=== PATIENT | female | born 1975 | race Caucasian/White ===

== ENCOUNTER 2018-03-26 05:48 | Day surgery (SDC) | payer MEDICAID ==
[2018-03-26] MEDS ORDERED: Albuterol-Ipratrop 3 mg / 0.5 (3 ml) UD INH STA (07:43)
[2018-03-26] MEDS ORDERED: Midazolam 2 MG/2 ML VIAL ONE (09:40)
[2018-03-26] MEDS ORDERED: Propofol 10 mg/ml Inj (20 ML) ONE (09:40)
[2018-03-26] MEDS ORDERED: HYDROmorphone 0.5 mg/0.5 ml ISec ONE (10:32)
[2018-03-26] MEDS ORDERED: HYDROmorphone 0.5 mg/0.5 ml ISec IVP PRN (10:56)
[2018-03-26] MEDS ORDERED: Lactated Ringer's 1,000 ML IV SCH (11:00)
[2018-03-26 11:43] VITALS: O2SAT 96
[2018-03-26 13:53] VITALS: BP 116/71; PULSE 84; RESP 20; TEMP 97.7
--- NOTE | 2018-03-26 19:16 | PCM.SURG1 ---
Surgeon's Initial Post Op Note - Surgeon's Notes Surgeon: dr rosario Line Maintenance Technician: none Type of Anesthesia: General LMA Anesthesia Administered By: dr lee Pre-Operative Diagnosis: 43 yr with irrgular bleeding /endometrial plyp Operative Findings: seee the op reort Post-Operative Diagnosis: same Operation Performed: myasure/d&c, hysterscopy Specimen/Specimens Removed: ecc. emc. polyp Estimated Blood Loss: EBL {In ML}: 20 Blood Products Given: N/A Drains Used: No Drains Post-Op Condition: Good Date of Surgery/Procedure: 03/26/18 Time of Surgery/Procedure: 11:00
--- NOTE | 2018-03-27 06:30 | OP ---
PROCEDURE DATE: 03/26/2018 PREOPERATIVE DIAGNOSIS: A 43-year-old 0, para 0 with irregular bleeding and endometrial polyp. POSTOPERATIVE DIAGNOSIS: A 43-year-old 0, para 0 with irregular bleeding and endometrial polyp. SURGEON: Camden Napoles MD ANESTHESIA: General anesthesia. ANESTHESIOLOGIST: Dr. Ferreira. COMPLICATIONS: None. DEFICIT: 200 mL. ESTIMATED BLOOD LOSS: 20 mL. PROCEDURE PERFORMED: MyoSure, dilatation and curettage, hysteroscopy. DESCRIPTION OF PROCEDURE: After informed consent was obtained, the patient was brought to the operating room, placed on the table where general anesthesia was given. Once the anesthesia was found to be adequate, the patient was prepped and draped in the normal sterile fashion. Examination under anesthesia revealed the uterus to be 8-week size. No pelvic or adnexal masses. Anterior lip of the cervix was grasped with a tenaculum, gentle dilatation of the cervix was done. After hysteroscope was introduced, found to be a polyp to be 4 cm on the posterior wall of the uterus. Pictures were taken and the decision was made to use the MyoSure. MyoSure was then introduced and the polyp was removed. was performed. There was no polyp. After that, sharp curettage of anterior wall of the uterus was done and the ECC was sent to the pathology. After that, tenaculum was taken out of the anterior lip of the cervix, and it was sent to pathology. The patient tolerated the procedure well. Lap, sponge, and instrument counts were correct x2. Camden Napoles MD
== END 2018-03-26 12:50 | disposition home or self-care (01) ==
LOC: C.SDS 05:48
PROVIDERS: ATTEND Obstetrics & Gynecology
DX: N84.0 Polyp of corpus uteri (principal); N71.0 Acute inflammatory disease of uterus; N92.6 Irregular menstruation, unspecified; J47.9 Bronchiectasis, uncomplicated; J45.909 Unspecified asthma, uncomplicated; E03.9 Hypothyroidism, unspecified; Z90.5 Acquired absence of kidney; Z98.890 Other specified postprocedural states; Z79.899 Other long term (current) drug therapy
CPT/HCPCS: 58558; 88305; 94640; J1170; J2250; J2704; J3010